=== PATIENT | male | born 1985 | race Caucasian/White ===

== ENCOUNTER 2021-08-06 13:53 | Observation (INO) | payer OTHER, SELFPAY ==
[2021-08-06] VITALS (7 sets, daily range): BP systolic 109–140; BP diastolic 61–82; PULSE 59–88; RESP 14–19; TEMP 36.8; O2SAT 98–99
--- NOTE | ~2021-08-06 | CT_ITS ---
EXAMINATION: CT abdomen pelvis w con DATE: 08/06/2021 15:03 INDICATION: abd pain TECHNIQUE: Computed tomography (CT) of the abdomen and pelvis was performed without intravenous contr ast. Automated exposure control and iterative reconstruction technique were employed. The dose-length product was 470.36 mGy-cm. COMPARISON: 05/29/2016. FINDINGS: Lower thorax: Unremarkable Liver: Normal. Biliary/Gallbladder: Gallbladder is normal. No bile duct dilation. Pancreas: No mass or duct dilation. Spleen: Normal. Adrenals:No mass. Kidneys: No mass, stone, or hydronephrosis. Left renal atrophy/scar. GI tract: No small or large bowel dilation. Normal appendix. Short segment mild colonic wall edema at the splenic flexure, with very mild surrounding inflammatory change. Mesentery/Peritoneum: No ascites, mass, or free air. Retroperitoneum: No mass. Pelvis: Pelvic organs are within normal limits. Soft Tissues: Soft tissues and body wall unremarkable. Small fat-containing umbilical hernia. Bones: No acute osseous finding. IMPRESSION: Possible mild colitis at the splenic flexure secondary to infectious, inflammatory, or less likely is chemic etiology. Reviewed, dictated and finalized at location K. IMPRESSION: Possible mild colitis at the splenic flexure secondary to infectious, inflammat ory, or less likely ischemic etiology.
[2021-08-06 14:23] LABS: Basophils Percent Auto 0.4 % (0.2-1.2); Eosinophils Absolute Auto 0.1 K/mm3 (0-0.3); Eosinophils Percent Auto 1.9 % (0-4.4); Hemoglobin 15.1 g/dL (14.0-18.0); Immature Granulocyte Absolute 0.05 K/mm3 (0.00-0.031); Lymphocytes Absolute Auto 1.06 K/mm3 (0.9-3.2); Lymphocytes Percent Auto 20.4 % (18.3-44.2); Mean Corpuscular HGB Conc 33.6 g/dl (32-36); Mean Corpuscular Hemoglobin 28.7 pg (26-34); Mean Corpuscular Volume 85.4 fl (80-100); Mean Platelet Volume 8.9 fl (7.4-10.4); Monocytes Absolute Auto 0.5 K/mm3 (0.1-0.6); Monocytes Percent Auto 8.7 % (2.6-8.5); Neutrophils Absolute Auto 3.5 K/mm3 (1.3-6.7); Neutrophils Percent Auto 67.6 % (45.5-73.1); Platelet Count Result 251 k/mm3 (150-375); Red Blood Count 5.27 M/mm3 (4.6-6.20); Red Cell Distribution Width 12.6 % (11.5-14.5); White Blood Count 5.2 K/mm3 (4.5-10.0)
[2021-08-06] MEDS: SODIUM CHLORIDE 0.9% IV 1,000 ML 999 ML IV CONT (14:29)
[2021-08-06] MEDS: PROMETHAZINE HCL 25 MG/ML AMPUL 12.5 MG IV PUSH (14:29)
[2021-08-06] MEDS: KETOROLAC 30 MG/ML VIAL (*BKC) IV PUSH (14:29)
[2021-08-06 14:35] LABS: Alanine Aminotransferase 18 U/L (6-50); Albumin Level 4.3 g/dL (3.5-5.1); Alkaline Phosphatase 96 U/L (38-126); Anion Gap 7 mmol/L (8-16); Aspartate Amino Transferase 21 U/L (17-59); Bilirubin,Total 0.3 mg/dL (0.2-1.3); Blood Urea Nitrogen 15 mg/dL (9-20); Carbon Dioxide 25 mmol/L (22-30); Chloride 108 mmol/L (98-107); Estimated CRCL calculation 110 ml/min; Estimated Glomerular Filt Rate > 60; Glucose 108 mg/dL (65-110); Lipase 86 U/L (23-300); Potassium 3.9 mmol/L (3.4-5.0); Sodium 140 mmol/L (137-145)
[2021-08-06 15:50] LABS: Appearance Urine Clear (Clear); Bilirubin Urine Negative (Negative); Blood Urine 1+ (Negative); Color Urine Yellow (Yellow); Glucose Urine UA Negative (Negative); Ketones Urine Negative (Negative); Leukocyte Esterase Ur Negative LEU/UL (Negative); Nitrate Urine Negative (Negative); Protein Urine Negative (Negative); Urobilinogen Urine 0.2 mg/dL (<2.0); pH Urine 5.5 (5.0-9.0)
[2021-08-06 15:58] LABS: Mucus Urine Rare /lpf; WBC Urine 0-3 /hpf
[2021-08-06 16:01] LABS: Lactic Acid Reflex 0.8 mmol/L (0.7-2.0)
[2021-08-06 16:06] LABS: Add Urine Microscopic? YES
--- NOTE | 2021-08-06 16:34 | ED.GENADULT ---
HPI - General Adult General Chief complaint: Nausea/Vomiting/Diarrhea Stated complaint: abdominal pain Time Seen by Provider: 08/06/21 13:59 Source: RN notes reviewed History of Present Illness HPI narrative: Patient presents emergency department from home for abdominal pain. Patient states that he has been having abdominal pain for the past 2 days the pain is located diffusely throughout the abdomen worse in the right upper quadrant states has been associated with nausea and vomiting is been unable to keep anything down. States he does have Zofran at home which she has taken with minimal relief. Denies any fevers or chills chest pain shortness of breath states he does have regular diarrhea but over the past 2 days has not had any bowel movements. He states he does have a history of ongoing abdominal discomfort and has been seen by Dr Taylor in the past with both an endoscopy and a colonoscopy. He states that he is currently on Levaquin for an upper respiratory infection Related Data Allergies Allergy/AdvReac Type Severity Reaction Status Date / Time amoxicillin Allergy Intermediate HIVES AND Verified 08/06/21 14:08 THROAT SWELLING AND FACE SWELLING cefaclor Allergy Intermediate HIVES AND Verified 08/06/21 14:08 FACE SWELLING cephalexin Allergy Intermediate SWELLING Verified 08/06/21 14:08 OF FACE HIVES clavulanic acid Allergy Intermediate SWELLING Verified 08/06/21 14:08 HIVES Macrolide Antibiotics Allergy Intermediate HIVES Verified 08/06/21 14:08 SWELLING Cephalosporins Allergy Unknown Other Verified 08/06/21 14:08 erythromycin base Allergy Unknown Other Verified 08/06/21 14:08 Penicillins Allergy Unknown Other Verified 08/06/21 14:08 Sulfa (Sulfonamide Allergy Unknown Other Verified 08/06/21 14:08 Antibiotics) Review of Systems Review of Systems: Gen.: Denies fevers or chills ENT: Denies congestion Respiratory: Denies shortness of breath or cough CV: Denies chest pain or palpitations GI: see HPI denies burning, urgency, frequency or hematuria Musculoskeletal: Denies back pain or muscle pain Neuro: Denies numbness, tingling, weakness or focal weakness Skin: Denies rash Except as documented, all other systems reviewed and negative PMFSH Past Medical History Medical History (Updated 08/06/21 @ 16:37 by Juan Jose Novoa DO) Patient denies significant medical history Family History Family History (Updated 02/24/14 @ 15:03 by DOCTOR UNKNOWN) Other Family history of cardiovascular disease Social History Social History (Updated 08/06/21 @ 16:36 by Juan Jose Novoa DO) Smoking status: Never smoker Exam Narrative: APPEARANCE: No acute distress, nontoxic, resting in bed HEENT: Normocephalic, atraumatic, OMM RESPIRATORY: No respiratory distress, clear to auscultation bilaterally with no rhonchi wheezing or rales CARDIOVASCULAR: RRR s murmur ABDOMINAL: Soft nondistended diffusely tender palpation no rebound or guard MUSCULOSKELETAl: Moves all extremities. No clubbing, cyanosis or edema. NEURO: Awake and alert. Following commands, speech normal, no focal deficits SKIN:: Warm, dry. Normal Color PSYCHIATRIC: Normal affect/mood Course Course Emergency Course: Patient continues to have nausea will admit at this time Discussed with LOSS PREVENTION SUPERVISOR Anca for Dr. Marcus agrees with admission Discussed with Dr Taylor agrees with consult Discussed with patient and family results of workup and diagnosis. Discussed need for admission. Patient and family understand and agree to current treatment plan. Patient states he took last dose of Levaquin yesterday evening Vital Signs Vital signs: Vital Signs Temperature 98.2 F 08/06/21 13:56 Pulse Rate 88 08/06/21 13:56 Respiratory Rate 16 08/06/21 13:56 Blood Pressure 140/82 08/06/21 13:56 Pulse Oximetry 99 08/06/21 13:56 Oxygen Delivery Room Air 08/06/21 13:56 Temperature 98.2 F 07/19
[2021-08-06] MEDS: metroNIDAZOLE 500 MG/ISO 100ML 500 MG/100 ML BAG 100 MG IVPB (17:01)
[2021-08-06 17:20] LABS: SARS-CoV-2 RNA PCR Negative
--- NOTE | 2021-08-06 18:21 | PM.IMHP ---
H&P: HPI History of Present Illness Date/Time: Patient was placed observation status for expected length of stay less than 23 hours for management, will plan to re-evaluate tomorrow for improvement. 08/06/21 18:21 Chief Complaint: Nausea vomiting Narrative: Mr. Scales is a 36-year-old gentleman who presented to the emergency room with complaints of nausea vomiting for 1 and half days. Patient states that he has seen gastroenterology in the past and had an EGD as well as a colonoscopy and was told they were both normal. Patient states that he has had this nausea vomiting for 3 years and it comes and goes. Patient states that he has recently seen his primary care provider for this reason and he was to see a new drill foreman, but he never made the follow-up appointment. Upon evaluation in emergency room patient did receive Zofran and Phenergan and stated he continued to have nausea. Patient did receive 2 L of IV fluids. Patient did undergo CT scan that showed possible mild colitis at the splenic flexure secondary to infectious, inflammatory, or less likely ischemic etiology. Patient states that there have been many times when he eats he does get intense abdominal pain. Patient denies being diabetic. Patient denies smoking marijuana. Patient states he did have a bowel movement this morning, but typically he has multiple bowel movements during the day that are either very softer liquid. Patient denies any fever chills. Patient denies any dysuria, hematuria, frequency, or urgency. Patient states that he has had some abdominal pain with his nausea and vomiting. Patient states he does have a known history of gastroesophageal reflux disease, allergic rhinitis, and a spontaneous pneumothorax to the right lung field when he was younger. Review of Systems Review of Systems: A 12 point review of systems was completed patient all pertinent positive and negative per HPI the remainder are unremarkable. [facility] Past Medical History Medical History (Updated 08/06/21 @ 20:45 by Anca Figueroa APRN) Allergic rhinitis Gastroesophageal reflux Patient denies significant medical history Spontaneous pneumothorax Surgical History Surgical History (Updated 08/06/21 @ 20:49 by Anca Figueroa APRN) No pertinent past surgical history Family History Family History (Updated 02/24/14 @ 15:03 by DOCTOR UNKNOWN) Other Family history of cardiovascular disease Social History Social History (Updated 08/06/21 @ 16:36 by Juan Jose Novoa DO) Smoking status: Never smoker Meds Home Medications and Allergies Allergies Allergy/AdvReac Type Severity Reaction Status Date / Time amoxicillin Allergy Intermediate HIVES AND Verified 08/06/21 14:08 THROAT SWELLING AND FACE SWELLING cefaclor Allergy Intermediate HIVES AND Verified 08/06/21 14:08 FACE SWELLING cephalexin Allergy Intermediate SWELLING Verified 08/06/21 14:08 OF FACE HIVES clavulanic acid Allergy Intermediate SWELLING Verified 08/06/21 14:08 HIVES Macrolide Antibiotics Allergy Intermediate HIVES Verified 08/06/21 14:08 SWELLING Cephalosporins Allergy Unknown Other Verified 08/06/21 14:08 erythromycin base Allergy Unknown Other Verified 08/06/21 14:08 Penicillins Allergy Unknown Other Verified 08/06/21 14:08 Sulfa (Sulfonamide Allergy Unknown Other Verified 08/06/21 14:08 Antibiotics) Vital Signs Vital Signs - 24 hr 08/06/21 13:56 08/06/21 15:15 08/06/21 15:16 Temperature 36.8 C Pulse Rate 88 66 65 Respiratory Rate 16 Blood Pressure 140/82 115/61 120/80 Pulse Oximetry 99 Oxygen Delivery Room Air 08/06/21 15:17 08/06/21 17:05 08/06/21 16:00 Temperature Pulse Rate 70 59 L 62 Respiratory Rate 14 14 Blood Pressure 139/81 109/65 111/74 Pulse Oximetry 98 99 Oxygen Delivery 08/06/21 15:00 Temperature Pulse Rate 88 Respiratory Rate 19 Blood Pressure 120/71 Pulse Oximetry 99
--- NOTE | 2021-08-06 19:12 | PC.NURSE ---
Pt stated repeatedly that he wanted to leave AMA. He stated he was only here because his mother guilted him into it and he is not going to stay here another minute. He allowed me to finish the levofloxacin IV that was running when brought to the unit. Upon completion of the levofloxacin, I removed the IV catheter; pt signed the AMA form and left.
--- NOTE | 2021-08-06 19:15 | PM.EVENT ---
Event Note Event Note Event Note: Per nursing note patient had requested leave against medical advice and stated he was only here because his mother ?guilty did into being here?. I was not notified the patient went to leave against medical advice and on 08/06/20211911 patient was discharged against medical advice.
== END 2021-08-06 19:10 | disposition left against medical advice (07) ==
LOC: ANHED 16:37 → ANH3MEDSUR 17:04
PROVIDERS: Admitting Provider Family Medicine; Emergency Provider Emergency Medicine; PCP Nurse Practitioner Family; Visit Provider Family Medicine
DX: K52.9 Noninfective gastroenteritis and colitis, unspecified (principal); R11.2 Nausea with vomiting, unspecified; K21.9 Gastro-esophageal reflux disease without esophagitis; Z20.822 Contact with and (suspected) exposure to COVID-19
CPT/HCPCS: 36415; 74177; 80053; 81001; 83605; 83690; 85025; 96361; 96365; 96375; 99285; C9803; G0378; J1885; J1956; J2405; J2550; J7030; Q9967; U0003; U0005

== ENCOUNTER 2021-09-25 08:08 | Outpatient (CLI) | payer OTHER, SELFPAY ==
--- NOTE | ~2021-09-25 | US_ITS ---
EXAMINATION: US right upper quadrant DATE: 09/25/2021 08:56 INDICATION: Abdominal pain. Nausea and vomiting. TECHNIQUE: Multiple grayscale and Doppler ultrasound images of the abdomen were obtained. COMPARISON: CT abdomen and pelvis 08/06/2021 FINDINGS: The visualized portions of the head and body of the pancreas are normal. The liver is cezar l without focal lesion. There is normal flow in main portal vein. The gallbladder is normal in size. No gallstones or gallbladder wall thickening. There was no sonographic Dunn sign. The common duct i s normal and measures 4 mm. IMPRESSION: 1. Normal right upper quadrant ultrasound. Reviewed, dictated and finalized at location A.
== END 2021-09-25 08:09 | disposition home or self-care (01) ==
PROVIDERS: PCP Nurse Practitioner Family; Visit Provider Internal Medicine Gastroenterology
DX: R10.9 Unspecified abdominal pain (principal); R11.0 Nausea; R11.10 Vomiting, unspecified
CPT/HCPCS: 76705

== ENCOUNTER 2024-11-29 14:35 | Emergency (ER) | payer OTHER, SELFPAY ==
--- NOTE | ~2024-11-29 | XR_ITS ---
EXAMINATION: XR tibia fibula RT 2V, 11/29/2024 14:50 CDT HISTORY: trauma. hit with large piece of wood COMPARISON: No comparisons available. Findings: No acute fracture or malalignment. No significant degenerative changes. Soft tissues unremarkable. Impression: No acute fracture or malalignment. Reviewed, dictated and finalized at location P. Impression: No acute fracture or malalignment.
--- NOTE | 2024-11-29 14:40 | ED.LOWEXIN ---
HPI - Extremity Injury (Lower) General Chief Complaint: Extremity Injury, Lower Stated Complaint: Right Lower Leg Pain Time Seen by Provider: 11/29/24 14:39 Source: patient Mode of arrival: ambulatory Limitations: no limitations History of Present Illness HPI Narrative: Patient is a 39-year-old male that presents with contusion and abrasion to left lower leg. Patient states he was selling large piece of was that broke and fell onto his leg. No active bleeding on arrival. Patient does admit he had a brief loss of consciousness for 30 seconds due to pain. Patient states this has happened to him before in is normal when he has high pain. Patient is able to ambulate and move ankle and toes normally. Denies any numbness, tingling or weakness to the rest of foot. Also denies hitting his head when he passed out. Related Data Home Medications ?Medication ?Instructions ?Recorded ?Confirmed ?Last Taken ?Type ondansetron 4 mg disintegrating mg 11/29/24 Unknown History tablet Allergies Allergy/AdvReac Type Severity Reaction Status Date / Time amoxicillin Allergy Intermediate HIVES AND Verified 11/29/24 14:53 THROAT SWELLING AND FACE SWELLING cefaclor Allergy Intermediate HIVES AND Verified 11/29/24 14:53 FACE SWELLING cephalexin Allergy Intermediate SWELLING Verified 11/29/24 14:53 OF FACE HIVES clavulanic acid Allergy Intermediate SWELLING Verified 11/29/24 14:53 HIVES Macrolide Antibiotics Allergy Intermediate HIVES Verified 11/29/24 14:53 SWELLING Cephalosporins Allergy Unknown Other Verified 11/29/24 14:53 erythromycin base Allergy Unknown Other Verified 11/29/24 14:53 Penicillins Allergy Unknown Other Verified 11/29/24 14:53 Sulfa (Sulfonamide Allergy Unknown Other Verified 11/29/24 14:53 Antibiotics) Review of Systems Review of Systems: All systems reviewed & are unremarkable except as noted in HPI and below Constitutional: Constitutional: Denies body ache(s), Denies chills, Denies fatigue, Denies fever(s), Denies headache(s), Denies malaise and Denies weakness Eyes: Eyes: Denies blurry vision, Denies irritation and Denies loss of vision ENT: Denies otalgia, Denies headache(s), Denies nasal discharge, Denies sinus pain and Denies sore throat Cardiovascular: Cardiovascular: Denies chest pain, Denies irregular heart rhythm and Denies dyspnea Respiratory: Respiratory: Denies dyspnea Gastrointestinal: Gastrointestinal: Denies abdominal pain, Denies melena, Denies hematochezia, Denies diarrhea, Denies nausea and Denies vomiting Musculoskeletal: Musculoskeletal: Denies back pain, Reports myalgias and Denies arthralgias Integumentary/Breasts: Skin/Breast: Denies pruritus, Denies rash, Reports skin pain and Reports wounds Neurologic: Denies headache(s), Denies loss of vision and Denies weakness Psychiatric: Psychiatric: Reports no additional psychiatric complaints Endocrine: Endocrine: Denies fatigue [facility] Past Medical History Medical History Spontaneous pneumothorax Allergic rhinitis Gastroesophageal reflux Patient denies significant medical history Surgical History Surgical History No pertinent past surgical history Family History Family History Other Family history of cardiovascular disease Social History Social History Smoking status: Never smoker Comments At time of signature, agree with nursing past medical, surgical, social and family history. There is no relevant family history pertinent to the presenting complaint. Exam Const: General: cooperative, healthy appearing, comfortable, no acute distress and well nourished Nutritional Appearance: well nourished Orientation/consciousness: patient oriented x3 Limitations: no limitations HENMT: Head: normal to inspection, normocephalic and atraumatic Ears: hearing grossly normal bilaterally and external ears normal Face/Nose/Sinus: Normal external nose present, normal facial exam and face symmetric Face and sinus: normal facial exam and face symmetric Mouth: Yes lip normal Eyes: General: appearance normal, both eyes and all related structures Alignment and Position: alignment normal and position normal Periorbital: periorbital findings normal Eyelids: eyelids normal Pupils: Equal, round and reactive pupils present EOM: EOMs intact bilaterally Neck: Neck: normal visual inspection, full ROM and supple Chest: Chest palpation & inspection: normal inspection of the chest Resp: Effort & Inspection: normal respiratory effort and able to speak in complete sentences Auscultation: clear to auscultation bilaterally Cardio: Rate: regular rate Rhythm: regular rhythm Heart sounds: S1 normal heart sound present and S2 normal heart sound present GI: Inspection: normal to inspection Skin: General skin exam: normal color and no rashes or lesions noted Neuro: General: patient oriented x3 and moves all extremities Cranial nerves: Yes Equal, round and reactive pupils present Cognition (Neuro): normal cognition Speech: normal speech Gait exam (Neuro): Normal gait present Motor exam (neuro): 5/5 motor strength present throughout, Normal motor muscle tone present throughout and Motor abnormalities not present Sensory Exam: normal sensation Extrem: General: normal to inspection, full ROM and no edema Right lower extremity: knee Details: normal to inspection and normal ROM; no tenderness and no swelling, lower leg Details: tenderness Location: of the midshaft tibia and of the midshaft fibula and abrasion mid lower leg anterior Details: single; no ecchymosis and no deformity, ankle Details: normal to inspection and normal ROM; no tenderness, no swelling and achilles tendon exam normal and foot Details: normal capillary refill, normal to inspection and vascular exam Details: dorsalis pedis pulse present and normal capillary refill Psych: Appearance: grossly normal and well kempt Mental Status: mental status grossly normal Speech and movement: Normal speech and movement present Affect: normal affect Attitude: cooperative Thought process: Normal thought process present Course Course Emergency Course: Patient is aware of diagnosis, understands and agrees to treatment plan. Anticipatory guidance given. Patient agrees to follow-up as directed and is aware of reasons to seek care at the emergency department. Portions of this record may have been created with voice recognition software Level of Care: Express Care Visit Vital Signs Vital signs: Reviewed MDM - Extremity Injury (Lower) MDM Narrative Medical decision making narrative: Patient is completely neuro intact. Wound was cleansed and dressed with antibiotic ointment and covered. Pt well hydrated appearing, in no respiratory distress, hemodynamically stable. Recommend supportive care. The patient is stable at time of discharge the clinical impression was discussed and the patient was given the opportunity to ask questions, which were addressed as completely as possible given the information available at present. Anticipatory guidance and return to care precautions were discussed and the importance of primary care follow-up was stressed and encouraged. The patient voiced understanding of the plan, indications to return, and the need for follow-up. Exam findings show no acute concerns or changes Patient is appropriate for outpatient treatment and follow-up. Differential Diagnosis Differential diagnosis: Likely other (Depart fracture, contusion, abrasion) Imaging Data Radiologist's impression: EXAMINATION: XR tibia fibula RT 2V, 11/29/2024 14:50 CDT HISTORY: trauma. hit with large piece of wood COMPARISON: No comparisons available. Findings: No acute fracture or malalignment. No significant degenerative changes. Soft tissues unremarkable. Impression: No acute fracture or malalignment. Reviewed, dictated and finalized at location P. Discharge Plan Discharge Clinical Impression: Contusion of lower leg, right Qualifiers: Encounter type: initial encounter Qualified Code(s): S80.11XA - Contusion of right lower leg, initial encounter Patient Disposition: Home Condition: Stable Instructions: Contusion in Adults (ED) Additional Instructions: Avoid activities that cause pain until the pain subsides. Ice to the area 20-30 minutes 4-6 times a day Elevate above heart For pain, you may take: Tylenol 650-1000mg by mouth every 4-6 hours. Do not exceed 4000mg in 24 hours. Follow up with your primary care provider if the condition is not improving within 1 week. If the condition worsens with numbness, tingling, decrease sensation with weakness seek treatment in the emergency room immediately. Patient Language: Occitan Prescriptions: New mupirocin 2 % ointment 1 applic topical BID Qty: 15 0RF No Action ondansetron 4 mg tablet,disintegrating Follow-up/Referrals: SILVIA,CHENTE MCGINNIS [Primary Care Provider] - 3 Days Time of Disposition: 15:29
[2024-11-29 14:52] VITALS: BP 137/82; PULSE 82; RESP 18; TEMP 37; O2SAT 100
== END 2024-11-29 15:40 | disposition home or self-care (01) ==
PROVIDERS: Emergency Provider Nurse Practitioner Family; PCP Nurse Practitioner Family
DX: S80.11XA Contusion of right lower leg, initial encounter (principal); W20.8XXA Other cause of strike by thrown, projected or falling object, initial encounter; K21.9 Gastro-esophageal reflux disease without esophagitis
CPT/HCPCS: 73590; 99213; G0463